=== PATIENT | male | born 1955 | race Caucasian/White ===

== ENCOUNTER 2022-03-25 13:05 | Inpatient (IN) | payer MEDICAID, OTHER ==
[~2022-03-25] VITALS: Ht 182.9 cm; Wt 72.5 kg
[2022-03-25 14:34] LABS: APPEARANCE,URINE CLEAR (CLEAR); BILIRUBIN,URINE NEGATIVE (NEGATIVE); GLUCOSE, URINE (UA) NEGATIVE (NEGATIVE); KETONES,URINE NEGATIVE (NEGATIVE); LEUKOCYTE ESTERASE ,URINE NEGATIVE (NEGATIVE); NITRATE,URINE NEGATIVE (NEGATIVE); OCCULT BLOOD,URINE NEGATIVE (NEGATIVE); PROTEIN,URINE NEGATIVE (NEGATIVE); SPECIFIC GRAVITIY, URINE 1.006 (1.003-1.030); UROBILINOGEN,URINE <=1.0 mg/dL (<=1.0)
[2022-03-25 14:39] LABS: AMPHET/METH SCREEN,URINE NEGATIVE (NEGATIVE); BARBITURATE SCREEN, URINE NEGATIVE (NEGATIVE); BENZODIAZEPINES SCREEN,URINE NEGATIVE (NEGATIVE); CANNABINOID SCREEN,URINE NEGATIVE (NEGATIVE); COCAINE SCREEN,URINE NEGATIVE (NEGATIVE); METHADONE SCREEN, URINE NEGATIVE (NEGATIVE); OPIATE SCREEN,URINE NEGATIVE (NEGATIVE)
[2022-03-25 14:40] LABS: PHENCYCLIDINE SCREEN,URINE NEGATIVE (NEGATIVE)
[2022-03-25] MEDS ORDERED: HALOPERIDOL 5 MG TABLET PO PRN (14:45)
[2022-03-25] MEDS ORDERED: LORazepam 2 MG TABLET PO PRN (14:45)
[2022-03-25] MEDS ORDERED: ZOLPIDEM TARTRATE 10 MG TABLET PO PRN (14:45)
[2022-03-25] MEDS ORDERED: LORazepam 2 MG TABLET PO ONE (15:15)
[2022-03-25] MEDS ORDERED: DiphenhydrAMINE HCL 50 MG CAPSULE PO ONE (15:15)
[2022-03-25] MEDS ORDERED: HALOPERIDOL 5 MG TABLET PO ONE (15:15)
[2022-03-25 15:25] LABS: COVID AG,FIA SOURCE NASOPHARYNGEAL
[2022-03-25 15:26] LABS: BASOPHILS % (AUTO) 1.2 % (0.0-2.0); EOSINOPHILS % (AUTO) 1.1 % (1.0-6.0); HEMATOCRIT 38.8 % (41-53); LYMPHOCYTES % (AUTO) 19.6 % (22.0-44.0); MEAN CORPUSCULAR HEMOGLOBIN 31.8 pg (26.0-34.0); MEAN CORPUSCULAR HGB CONC 33.5 G/dL (31.0-37.0); MEAN CORPUSCULAR VOLUME 95 fL (80-100); MONOCYTES # (AUTO) 0.4 K/uL (0.1-1.0); MONOCYTES % (AUTO) 8.2 % (2.0-9.0); NEUTROPHILS # (AUTO) 3.7 K/uL (1.8-7.7); NEUTROPHILS % (AUTO) 69.9 % (40.0-70.0); PLATELET COUNT (AUTO) 166 K/uL (150-450); RED BLOOD CELL COUNT(AUTO) 4.08 MIL/uL (4.50-5.90); RED CELL DISTRIBUTION WIDTH 13.7 % (11.5-14.5)
[2022-03-25 15:49] LABS: ANION GAP 6 mmol/L (8-16); CARBON DIOXIDE 29 mmol/L (22-29); CHLORIDE 105 mmol/L (98-107); CREATININE 0.99 mg/dL (0.60-1.30); GLUCOSE,RANDOM 109 mg/dL (70-110); SODIUM SERUM 140 mmol/L (136-145); UREA NITROGEN, BLOOD 18 mg/dL (7-18)
[2022-03-25 15:50] LABS: CALCIUM, TOTAL 8.6 mg/dL (8.8-10.5); GLOMERULAR FILTR. RATE CALC > 60 mL/min (>60)
[2022-03-25 15:56] LABS: ALANINE AMINOTRANSFERASE 27 U/L (12-78); ALBUMIN 3.2 g/dL (3.4-5.0); ALKALINE PHOSPHATASE 117 U/L (46-116); ASPARTATE AMINOTRANSFERASE 17 U/L (15-37); BILIRUBIN,TOTAL 0.3 mg/dL (0.1-1.0); TOTAL PROTEIN, SERUM 5.6 g/dL (6.4-8.2)
[2022-03-25 17:50] VITALS: BP 157/69
[2022-03-26 08:00] VITALS: BP 117/62
[2022-03-26] MEDS ORDERED: ONDANSETRON HCL 4 MG TABLET PO PRN (09:15)
[2022-03-26] MEDS ORDERED: MAGNESIUM HYDROXIDE SUSPENSION 30 ML UDCUP PO PRN (09:15)
[2022-03-26] MEDS ORDERED: DOCUSATE SODIUM 100 MG CAPSULE PO PRN (09:15)
[2022-03-26] MEDS ORDERED: ACETAMINOPHEN 325 MG TABLET PO PRN (09:15)
[2022-03-26] MEDS ORDERED: MAG HYDROX/AL HYDROX/SIMETH ES 30 ML SUSPENSION UDCUP PO PRN (09:15)
[2022-03-26] MEDS ORDERED: IBUPROFEN 400 MG TABLET PO PRN (09:15)
[2022-03-26] MEDS ORDERED: ALBUTEROL SULFATE HFA 90 MCG/PUFF 8 GM INHALER IH PRN (09:15)
[2022-03-26] MEDS ORDERED: GuaiFENesin/D-METHORPHAN [SUGAR-FREE] 200-20MG/10 ML SYRUP UDCUP PO PRN (09:15)
[2022-03-26] MEDS ORDERED: LOPERAMIDE HCL 2 MG CAPSULE PO PRN (09:15)
[2022-03-26] MEDS ORDERED: CloNIDine HCL 0.1 MG TABLET PO PRN (09:15)
[2022-03-26] MEDS ORDERED: NICOTINE 14 MG/24 HOUR PATCH TD PRN (09:15)
[2022-03-26] MEDS ORDERED: PETROLATUM,WHITE 28 GM JELLY TP PRN (09:15)
[2022-03-26 16:37] VITALS: BP 114/55
[2022-03-26] MEDS ORDERED: BUPR-317 PO (16:57)
[2022-03-26] MEDS ORDERED: CLON-595 PO (16:57)
[2022-03-26] MEDS ORDERED: CARI3CAP PO (16:57)
[2022-03-26] MEDS ORDERED: CHOL10002 PO (17:15)
[2022-03-26] MEDS ORDERED: AMLO5TAB66 PO (17:15)
[2022-03-26] MEDS ORDERED: ATOR40TA71 PO (17:15)
[2022-03-26] MEDS ORDERED: OXCA300T28 PO (17:15)
[2022-03-26] MEDS ORDERED: LISI40TA9 PO (17:15)
[2022-03-26] MEDS ORDERED: OXYB5TAB20 PO (17:15)
[2022-03-26] MEDS ORDERED: LEVE250T4 PO (17:15)
[2022-03-26] MEDS: OXYBUTYNIN CHLORIDE 5 MG TABLET PO SCH (20:35)
[2022-03-26] MEDS: ClonazePAM 1 MG TABLET PO SCH (20:36)
[2022-03-26] MEDS: RisperiDONE 3 MG TABLET PO SCH (20:36)
[2022-03-27] MEDS: ATORVASTATIN CALCIUM 40 MG TABLET PO SCH (08:43)
[2022-03-27] MEDS: OXcarbazepine 300 MG TABLET PO SCH ×2 (08:43→16:46)
[2022-03-27] MEDS: BuPROPion HCL XL 150 MG ER TABLET PO SCH (08:45)
[2022-03-27] MEDS: ClonazePAM 1 MG TABLET PO SCH ×2 (08:45→20:43)
[2022-03-27] MEDS: LISINOPRIL 20 MG TABLET PO SCH (08:45)
[2022-03-27] MEDS: AmLODIPine BESYLATE 5 MG TABLET PO SCH (08:46)
[2022-03-27] MEDS: CHOLECALCIFEROL (VIT D3) 1,000 UNITS [25 MCG] TABLET PO SCH (08:46)
[2022-03-27] MEDS: LevETIRAcetam 250 MG TABLET PO SCH ×2 (08:47→16:44)
[2022-03-27 09:00] VITALS: BP 153/74
[2022-03-27 16:09] VITALS: BP 128/73
[2022-03-27] MEDS: MUPIROCIN CALCIUM 2% 22 GM OINTMENT NASAL SCH (16:48)
[2022-03-27] MEDS: RisperiDONE 3 MG TABLET PO SCH (20:43)
[2022-03-27] MEDS: OXYBUTYNIN CHLORIDE 5 MG TABLET PO SCH (20:43)
[2022-03-28 08:00] VITALS: BP 142/80
[2022-03-28] MEDS: MUPIROCIN CALCIUM 2% 22 GM OINTMENT NASAL SCH ×2 (08:24→16:58)
[2022-03-28] MEDS: BuPROPion HCL XL 150 MG ER TABLET PO SCH (08:25)
[2022-03-28] MEDS: ATORVASTATIN CALCIUM 40 MG TABLET PO SCH (08:25)
[2022-03-28] MEDS: LISINOPRIL 20 MG TABLET PO SCH (08:26)
[2022-03-28] MEDS: OXcarbazepine 300 MG TABLET PO SCH ×2 (08:26→16:06)
[2022-03-28] MEDS: CHOLECALCIFEROL (VIT D3) 1,000 UNITS [25 MCG] TABLET PO SCH (08:27)
[2022-03-28] MEDS: AmLODIPine BESYLATE 5 MG TABLET PO SCH (08:27)
[2022-03-28] MEDS: ClonazePAM 1 MG TABLET PO SCH ×2 (08:27→20:48)
[2022-03-28] MEDS: LevETIRAcetam 250 MG TABLET PO SCH ×2 (08:28→16:06)
[2022-03-28 16:00] VITALS: BP 106/66
[2022-03-28] MEDS: RisperiDONE 3 MG TABLET PO SCH (20:48)
[2022-03-28] MEDS: OXYBUTYNIN CHLORIDE 5 MG TABLET PO SCH (20:48)
[2022-03-29 09:09] VITALS: BP 120/60
[2022-03-29] MEDS: LevETIRAcetam 250 MG TABLET PO SCH ×2 (09:46→16:46)
[2022-03-29] MEDS: MUPIROCIN CALCIUM 2% 22 GM OINTMENT NASAL SCH ×2 (09:47→16:46)
[2022-03-29] MEDS: AmLODIPine BESYLATE 5 MG TABLET PO SCH (09:48)
[2022-03-29] MEDS: LISINOPRIL 20 MG TABLET PO SCH (09:48)
[2022-03-29] MEDS: CHOLECALCIFEROL (VIT D3) 1,000 UNITS [25 MCG] TABLET PO SCH (09:48)
[2022-03-29] MEDS: BuPROPion HCL XL 150 MG ER TABLET PO SCH (09:59)
[2022-03-29] MEDS: ClonazePAM 1 MG TABLET PO SCH ×2 (09:59→20:36)
[2022-03-29] MEDS: ATORVASTATIN CALCIUM 40 MG TABLET PO SCH (09:59)
[2022-03-29] MEDS: OXcarbazepine 300 MG TABLET PO SCH ×2 (10:04→16:46)
[2022-03-29 16:06] VITALS: BP 104/53
[2022-03-29] MEDS: OXYBUTYNIN CHLORIDE 5 MG TABLET PO SCH (20:36)
[2022-03-29] MEDS: RisperiDONE 3 MG TABLET PO SCH (20:37)
[2022-03-30 08:24] VITALS: BP 103/57
[2022-03-30] MEDS: LevETIRAcetam 250 MG TABLET PO SCH ×2 (09:38→17:15)
[2022-03-30] MEDS: MUPIROCIN CALCIUM 2% 22 GM OINTMENT NASAL SCH ×2 (09:38→17:15)
[2022-03-30] MEDS: LISINOPRIL 20 MG TABLET PO SCH (09:40)
[2022-03-30] MEDS: AmLODIPine BESYLATE 5 MG TABLET PO SCH (09:40)
[2022-03-30] MEDS: CHOLECALCIFEROL (VIT D3) 1,000 UNITS [25 MCG] TABLET PO SCH (09:40)
[2022-03-30] MEDS: BuPROPion HCL XL 150 MG ER TABLET PO SCH (09:48)
[2022-03-30] MEDS: OXcarbazepine 300 MG TABLET PO SCH ×2 (09:48→17:15)
[2022-03-30] MEDS: ATORVASTATIN CALCIUM 40 MG TABLET PO SCH (09:48)
[2022-03-30] MEDS: ClonazePAM 1 MG TABLET PO SCH ×2 (09:48→20:48)
[2022-03-30 17:10] VITALS: BP 114/62
[2022-03-30] MEDS: OXYBUTYNIN CHLORIDE 5 MG TABLET PO SCH (20:47)
[2022-03-30] MEDS: RisperiDONE 3 MG TABLET PO SCH (20:48)
[2022-03-31 07:05] LABS: COVID AG,FIA SOURCE NASAL SWAB
[2022-03-31] MEDS: ATORVASTATIN CALCIUM 40 MG TABLET PO SCH (08:34)
[2022-03-31] MEDS: ClonazePAM 1 MG TABLET PO SCH ×2 (08:34→20:28)
[2022-03-31] MEDS: OXcarbazepine 300 MG TABLET PO SCH ×2 (08:34→16:10)
[2022-03-31] MEDS: AmLODIPine BESYLATE 5 MG TABLET PO SCH (08:35)
[2022-03-31] MEDS: MUPIROCIN CALCIUM 2% 22 GM OINTMENT NASAL SCH ×2 (08:36→16:10)
[2022-03-31] MEDS: LevETIRAcetam 250 MG TABLET PO SCH ×2 (08:36→16:10)
[2022-03-31] MEDS: BuPROPion HCL XL 150 MG ER TABLET PO SCH (08:36)
[2022-03-31] MEDS: LISINOPRIL 20 MG TABLET PO SCH (08:37)
[2022-03-31] MEDS: CHOLECALCIFEROL (VIT D3) 1,000 UNITS [25 MCG] TABLET PO SCH (08:37)
[2022-03-31 10:44] VITALS: BP 130/71
[2022-03-31 16:23] VITALS: BP 111/43
[2022-03-31] MEDS: RisperiDONE 3 MG TABLET PO SCH (20:28)
[2022-03-31] MEDS: OXYBUTYNIN CHLORIDE 5 MG TABLET PO SCH (20:28)
[2022-04-01] MEDS: LISINOPRIL 20 MG TABLET PO SCH (09:25)
[2022-04-01] MEDS: OXcarbazepine 300 MG TABLET PO SCH ×2 (09:25→16:45)
[2022-04-01] MEDS: ATORVASTATIN CALCIUM 40 MG TABLET PO SCH (09:35)
[2022-04-01] MEDS: CHOLECALCIFEROL (VIT D3) 1,000 UNITS [25 MCG] TABLET PO SCH (09:35)
[2022-04-01] MEDS: BuPROPion HCL XL 150 MG ER TABLET PO SCH (09:35)
[2022-04-01] MEDS: LevETIRAcetam 250 MG TABLET PO SCH ×2 (09:36→16:45)
[2022-04-01] MEDS: ClonazePAM 1 MG TABLET PO SCH ×2 (09:36→20:48)
[2022-04-01] MEDS: MUPIROCIN CALCIUM 2% 22 GM OINTMENT NASAL SCH ×2 (09:36→16:45)
[2022-04-01] MEDS: AmLODIPine BESYLATE 5 MG TABLET PO SCH (09:39)
[2022-04-01 09:51] VITALS: BP 128/69
[2022-04-01 16:00] VITALS: BP 116/56
[2022-04-01] MEDS: OXYBUTYNIN CHLORIDE 5 MG TABLET PO SCH (20:47)
[2022-04-01] MEDS: RisperiDONE 3 MG TABLET PO SCH (20:48)
[2022-04-02] MEDS: LevETIRAcetam 250 MG TABLET PO SCH ×2 (08:35→16:44)
[2022-04-02] MEDS: OXcarbazepine 300 MG TABLET PO SCH ×2 (08:35→16:44)
[2022-04-02] MEDS: LISINOPRIL 20 MG TABLET PO SCH (08:35)
[2022-04-02] MEDS: CHOLECALCIFEROL (VIT D3) 1,000 UNITS [25 MCG] TABLET PO SCH (08:35)
[2022-04-02] MEDS: AmLODIPine BESYLATE 5 MG TABLET PO SCH (08:35)
[2022-04-02] MEDS: ATORVASTATIN CALCIUM 40 MG TABLET PO SCH (08:35)
[2022-04-02] MEDS: ClonazePAM 1 MG TABLET PO SCH ×2 (08:36→20:21)
[2022-04-02] MEDS: BuPROPion HCL XL 150 MG ER TABLET PO SCH (08:36)
[2022-04-02 09:20] VITALS: BP 165/87
[2022-04-02 16:00] VITALS: BP 118/55
[2022-04-02] MEDS: OXYBUTYNIN CHLORIDE 5 MG TABLET PO SCH (20:21)
[2022-04-02] MEDS: RisperiDONE 3 MG TABLET PO SCH (20:22)
[2022-04-03 09:00] VITALS: BP 120/62
[2022-04-03] MEDS: OXcarbazepine 300 MG TABLET PO SCH ×2 (09:43→16:06)
[2022-04-03] MEDS: LevETIRAcetam 250 MG TABLET PO SCH ×2 (09:43→16:06)
[2022-04-03] MEDS: BuPROPion HCL XL 150 MG ER TABLET PO SCH (09:44)
[2022-04-03] MEDS: ClonazePAM 1 MG TABLET PO SCH ×2 (09:44→21:13)
[2022-04-03] MEDS: AmLODIPine BESYLATE 5 MG TABLET PO SCH (09:44)
[2022-04-03] MEDS: ATORVASTATIN CALCIUM 40 MG TABLET PO SCH (09:44)
[2022-04-03] MEDS: CHOLECALCIFEROL (VIT D3) 1,000 UNITS [25 MCG] TABLET PO SCH (09:44)
[2022-04-03] MEDS: LISINOPRIL 20 MG TABLET PO SCH (09:47)
[2022-04-03 17:04] VITALS: BP 113/62
[2022-04-03] MEDS: OXYBUTYNIN CHLORIDE 5 MG TABLET PO SCH (21:13)
[2022-04-03] MEDS: RisperiDONE 3 MG TABLET PO SCH (21:13)
[2022-04-04 09:30] VITALS: BP 131/73
[2022-04-04] MEDS: ATORVASTATIN CALCIUM 40 MG TABLET PO SCH (09:31)
[2022-04-04] MEDS: OXcarbazepine 300 MG TABLET PO SCH ×2 (09:31→16:56)
[2022-04-04] MEDS: ClonazePAM 1 MG TABLET PO SCH ×2 (09:31→20:48)
[2022-04-04] MEDS: BuPROPion HCL XL 150 MG ER TABLET PO SCH (09:31)
[2022-04-04] MEDS: LevETIRAcetam 250 MG TABLET PO SCH ×2 (09:31→16:56)
[2022-04-04] MEDS: LISINOPRIL 20 MG TABLET PO SCH (09:31)
[2022-04-04] MEDS: CHOLECALCIFEROL (VIT D3) 1,000 UNITS [25 MCG] TABLET PO SCH (09:31)
[2022-04-04] MEDS: AmLODIPine BESYLATE 5 MG TABLET PO SCH (09:32)
[2022-04-04] MEDS: OXYBUTYNIN CHLORIDE 5 MG TABLET PO SCH (20:48)
[2022-04-04] MEDS: RisperiDONE 3 MG TABLET PO SCH (20:48)
[2022-04-04 21:24] VITALS: BP 129/80
[2022-04-05] MEDS: OXcarbazepine 300 MG TABLET PO SCH (08:14)
[2022-04-05] MEDS: ClonazePAM 1 MG TABLET PO SCH (08:17)
[2022-04-05] MEDS: CHOLECALCIFEROL (VIT D3) 1,000 UNITS [25 MCG] TABLET PO SCH (08:18)
[2022-04-05] MEDS: ATORVASTATIN CALCIUM 40 MG TABLET PO SCH (08:18)
[2022-04-05] MEDS: LISINOPRIL 20 MG TABLET PO SCH (08:18)
[2022-04-05] MEDS: AmLODIPine BESYLATE 5 MG TABLET PO SCH (08:18)
[2022-04-05] MEDS: BuPROPion HCL XL 150 MG ER TABLET PO SCH (08:18)
[2022-04-05] MEDS: LevETIRAcetam 250 MG TABLET PO SCH (08:18)
[2022-04-05 08:57] VITALS: BP 130/77
[2022-04-05] MEDS ORDERED: CHOL25TA4 PO (16:04)
[2022-04-05] MEDS ORDERED: OXYB5TAB20 PO (16:04)
[2022-04-05] MEDS ORDERED: ATOR40TA71 PO (16:04)
[2022-04-05] MEDS ORDERED: AMLO-257 PO (16:04)
[2022-04-05] MEDS ORDERED: LEVE250T PO (16:04)
[2022-04-05] MEDS ORDERED: LISI-894 PO (16:04)
[2022-04-05] MEDS ORDERED: BUPR-49 PO (21:40)
[2022-04-05] MEDS ORDERED: RISP3TAB63 PO (21:40)
[2022-04-05] MEDS ORDERED: CLON-595 PO ×2 (21:40)
[2022-04-07] MEDS ORDERED: CLON-595 PO ×2 (09:24→09:55)
[2022-04-07] MEDS ORDERED: CLON-598 PO ×2 (09:24→09:55)
== END 2022-04-05 15:30 | disposition home or self-care (01) | DRG 750 ==
LOC: EMS 13:10 → 3EI 16:56
PROVIDERS: ADMIT Psychiatry & Neurology Psychiatry; ATTEND Psychiatry & Neurology Psychiatry
DX: F20.0 Paranoid schizophrenia (principal); G40.909 Epilepsy, unspecified, not intractable, without status epilepticus; D64.9 Anemia, unspecified; E78.5 Hyperlipidemia, unspecified; F17.200 Nicotine dependence, unspecified, uncomplicated; M19.90 Unspecified osteoarthritis, unspecified site; R32 Unspecified urinary incontinence; I10 Essential (primary) hypertension; F17.210 Nicotine dependence, cigarettes, uncomplicated; Z79.899 Other long term (current) drug therapy; Z20.822 Contact with and (suspected) exposure to COVID-19
CPT/HCPCS: 80053; 81003; 85025; 87081; 99285; G0480

== ENCOUNTER 2022-06-25 17:08 | Inpatient (IN) | payer MEDICAID ==
[~2022-06-25] VITALS: Ht 167.6 cm; Wt 73.5 kg
[~2022-06-25 17:08] MED LIST: AMLO-257 PO; ATOR40TA71 PO; BUPR-49 PO; CHOL25TA4 PO; CLON-595 PO; CLON-598 PO; LEVE250T PO; LISI-894 PO; OXYB5TAB20 PO; RISP3TAB63 PO
[2022-06-25 20:48] LABS: BASOPHILS % (AUTO) 0.5 % (0.0-2.0); EOSINOPHILS % (AUTO) 1.3 % (1.0-6.0); HEMATOCRIT 42.9 % (41-53); LYMPHOCYTES % (AUTO) 30.9 % (22.0-44.0); MEAN CORPUSCULAR HEMOGLOBIN 30.9 pg (26.0-34.0); MEAN CORPUSCULAR HGB CONC 32.5 G/dL (31.0-37.0); MEAN CORPUSCULAR VOLUME 95 fL (80-100); MONOCYTES # (AUTO) 0.5 K/uL (0.1-1.0); MONOCYTES % (AUTO) 7.1 % (2.0-9.0); NEUTROPHILS % (AUTO) 60.2 % (40.0-70.0); PLATELET COUNT (AUTO) 179 K/uL (150-450); RED BLOOD CELL COUNT(AUTO) 4.52 MIL/uL (4.50-5.90); RED CELL DISTRIBUTION WIDTH 14.1 % (11.5-14.5)
[2022-06-25 20:54] LABS: COVID AG,FIA SOURCE NASAL SWAB
[2022-06-25 21:02] LABS: ANION GAP 9 mmol/L (8-16); CALCIUM, TOTAL 8.6 mg/dL (8.8-10.5); CARBON DIOXIDE 27 mmol/L (22-29); CHLORIDE 103 mmol/L (98-107); GLUCOSE,RANDOM 103 mg/dL (70-110); POTASSIUM 4.1 mmol/L (3.5-5.1); SODIUM SERUM 139 mmol/L (136-145); UREA NITROGEN, BLOOD 17 mg/dL (7-18)
[2022-06-25 21:03] LABS: GLOMERULAR FILTR. RATE CALC > 60 mL/min (>60)
[2022-06-25 21:09] LABS: ALANINE AMINOTRANSFERASE 32 U/L (12-78); ALBUMIN 3.6 g/dL (3.4-5.0); ALKALINE PHOSPHATASE 105 U/L (46-116); ASPARTATE AMINOTRANSFERASE 22 U/L (15-37); BILIRUBIN,TOTAL 0.3 mg/dL (0.1-1.0); TOTAL PROTEIN, SERUM 6.8 g/dL (6.4-8.2)
[2022-06-25] MEDS ORDERED: LORazepam 2 MG TABLET PO ONE (21:15)
[2022-06-25] MEDS ORDERED: HALOPERIDOL 5 MG TABLET PO ONE (21:15)
[2022-06-25] MEDS ORDERED: DiphenhydrAMINE HCL 25 MG CAPSULE PO ONE (21:15)
[2022-06-25] MEDS ORDERED: DiphenhydrAMINE HCL 50 MG CAPSULE PO ONE (21:30)
[2022-06-25 21:59] LABS: AMPHET/METH SCREEN,URINE NEGATIVE (NEGATIVE); BARBITURATE SCREEN, URINE NEGATIVE (NEGATIVE); BENZODIAZEPINES SCREEN,URINE NEGATIVE (NEGATIVE); CANNABINOID SCREEN,URINE NEGATIVE (NEGATIVE); COCAINE SCREEN,URINE NEGATIVE (NEGATIVE); METHADONE SCREEN, URINE NEGATIVE (NEGATIVE); OPIATE SCREEN,URINE NEGATIVE (NEGATIVE)
[2022-06-25 22:00] LABS: PHENCYCLIDINE SCREEN,URINE NEGATIVE (NEGATIVE)
[2022-06-25 22:15] LABS: APPEARANCE,URINE CLEAR (CLEAR); BILIRUBIN,URINE NEGATIVE (NEGATIVE); GLUCOSE, URINE (UA) NEGATIVE (NEGATIVE); KETONES,URINE NEGATIVE (NEGATIVE); LEUKOCYTE ESTERASE ,URINE NEGATIVE (NEGATIVE); NITRATE,URINE NEGATIVE (NEGATIVE); OCCULT BLOOD,URINE NEGATIVE (NEGATIVE); PH,URINE 6.5 (5.0-8.0); PROTEIN,URINE NEGATIVE (NEGATIVE); SPECIFIC GRAVITIY, URINE 1.013 (1.003-1.030); UROBILINOGEN,URINE <=1.0 mg/dL (<=1.0)
[2022-06-25] MEDS ORDERED: HALOPERIDOL 5 MG TABLET PO PRN (22:15)
[2022-06-25] MEDS ORDERED: LORazepam 2 MG TABLET PO PRN (22:15)
[2022-06-26 03:34] VITALS: BP 103/69
[2022-06-26 08:22] VITALS: BP 130/90
[2022-06-26] MEDS ORDERED: MAG HYDROX/AL HYDROX/SIMETH ES 30 ML SUSPENSION UDCUP PO PRN (09:15)
[2022-06-26] MEDS ORDERED: ALBUTEROL SULFATE HFA 90 MCG/PUFF 8 GM INHALER IH PRN (09:15)
[2022-06-26] MEDS ORDERED: ONDANSETRON HCL 4 MG TABLET PO PRN (09:15)
[2022-06-26] MEDS ORDERED: NICOTINE 14 MG/24 HOUR PATCH TD PRN (09:15)
[2022-06-26] MEDS ORDERED: DOCUSATE SODIUM 100 MG CAPSULE PO PRN (09:15)
[2022-06-26] MEDS ORDERED: GuaiFENesin/D-METHORPHAN [SUGAR-FREE] 200-20MG/10 ML SYRUP UDCUP PO PRN (09:15)
[2022-06-26] MEDS ORDERED: PETROLATUM,WHITE 28 GM JELLY TP PRN (09:15)
[2022-06-26] MEDS ORDERED: ACETAMINOPHEN 325 MG TABLET PO PRN (09:15)
[2022-06-26] MEDS ORDERED: CloNIDine HCL 0.1 MG TABLET PO PRN (09:15)
[2022-06-26] MEDS ORDERED: IBUPROFEN 400 MG TABLET PO PRN (09:15)
[2022-06-26] MEDS ORDERED: MAGNESIUM HYDROXIDE SUSPENSION 30 ML UDCUP PO PRN (09:15)
[2022-06-26] MEDS ORDERED: LOPERAMIDE HCL 2 MG CAPSULE PO PRN (09:15)
[2022-06-26] MEDS ORDERED: RISP3TAB35 PO (12:31)
[2022-06-26] MEDS: ClonazePAM 1 MG TABLET PO SCH (12:47)
[2022-06-26] MEDS: BuPROPion HCL XL 150 MG ER TABLET PO SCH (12:47)
[2022-06-26] MEDS: RisperiDONE 3 MG TABLET PO SCH ×2 (12:47→20:20)
[2022-06-26 16:13] VITALS: BP 122/68
[2022-06-26] MEDS: LevETIRAcetam 250 MG TABLET PO SCH (16:50)
[2022-06-26] MEDS: OXYBUTYNIN CHLORIDE 5 MG TABLET PO SCH (20:20)
[2022-06-26 20:49] VITALS: BP 124/60
[2022-06-27] MEDS: BuPROPion HCL XL 150 MG ER TABLET PO SCH (09:16)
[2022-06-27] MEDS: RisperiDONE 3 MG TABLET PO SCH ×2 (09:16→20:33)
[2022-06-27] MEDS: CHOLECALCIFEROL (VIT D3) 1,000 UNITS [25 MCG] TABLET PO SCH (09:17)
[2022-06-27] MEDS: ClonazePAM 1 MG TABLET PO SCH (09:17)
[2022-06-27] MEDS: AmLODIPine BESYLATE 5 MG TABLET PO SCH (09:17)
[2022-06-27] MEDS: ATORVASTATIN CALCIUM 40 MG TABLET PO SCH (09:18)
[2022-06-27] MEDS: LevETIRAcetam 250 MG TABLET PO SCH ×2 (09:18→16:47)
[2022-06-27 09:22] VITALS: BP 119/63
[2022-06-27] MEDS: OXYBUTYNIN CHLORIDE 5 MG TABLET PO SCH (20:33)
[2022-06-27 20:41] VITALS: BP 132/90
[2022-06-28] MEDS: ClonazePAM 1 MG TABLET PO SCH (08:53)
[2022-06-28] MEDS: AmLODIPine BESYLATE 5 MG TABLET PO SCH (08:53)
[2022-06-28] MEDS: RisperiDONE 3 MG TABLET PO SCH ×2 (08:53→20:31)
[2022-06-28] MEDS: BuPROPion HCL XL 150 MG ER TABLET PO SCH (08:53)
[2022-06-28] MEDS: CHOLECALCIFEROL (VIT D3) 1,000 UNITS [25 MCG] TABLET PO SCH (08:53)
[2022-06-28] MEDS: ATORVASTATIN CALCIUM 40 MG TABLET PO SCH (08:53)
[2022-06-28] MEDS: LevETIRAcetam 250 MG TABLET PO SCH ×2 (09:01→16:33)
[2022-06-28 09:08] VITALS: BP 129/67
[2022-06-28 20:26] VITALS: BP 126/65
[2022-06-28] MEDS: OXYBUTYNIN CHLORIDE 5 MG TABLET PO SCH (20:31)
[2022-06-29 08:39] VITALS: BP 124/74
[2022-06-29] MEDS: ClonazePAM 1 MG TABLET PO SCH (08:42)
[2022-06-29] MEDS: RisperiDONE 3 MG TABLET PO SCH ×2 (08:42→20:12)
[2022-06-29] MEDS: CHOLECALCIFEROL (VIT D3) 1,000 UNITS [25 MCG] TABLET PO SCH (08:42)
[2022-06-29] MEDS: LevETIRAcetam 250 MG TABLET PO SCH ×2 (08:43→16:37)
[2022-06-29] MEDS: ATORVASTATIN CALCIUM 40 MG TABLET PO SCH (08:43)
[2022-06-29] MEDS: BuPROPion HCL XL 150 MG ER TABLET PO SCH (08:43)
[2022-06-29] MEDS: AmLODIPine BESYLATE 5 MG TABLET PO SCH (08:43)
[2022-06-29] MEDS: OXYBUTYNIN CHLORIDE 5 MG TABLET PO SCH (20:12)
[2022-06-29 20:13] VITALS: BP 122/74
[2022-06-30 08:36] VITALS: BP 107/66
[2022-06-30] MEDS: CHOLECALCIFEROL (VIT D3) 1,000 UNITS [25 MCG] TABLET PO SCH (08:42)
[2022-06-30] MEDS: AmLODIPine BESYLATE 5 MG TABLET PO SCH (08:42)
[2022-06-30] MEDS: LevETIRAcetam 250 MG TABLET PO SCH ×2 (08:42→16:27)
[2022-06-30] MEDS: RisperiDONE 3 MG TABLET PO SCH ×2 (08:42→20:15)
[2022-06-30] MEDS: BuPROPion HCL XL 150 MG ER TABLET PO SCH (08:42)
[2022-06-30] MEDS: ClonazePAM 1 MG TABLET PO SCH (08:43)
[2022-06-30] MEDS: ATORVASTATIN CALCIUM 40 MG TABLET PO SCH (08:43)
[2022-06-30] MEDS: OXYBUTYNIN CHLORIDE 5 MG TABLET PO SCH (20:14)
[2022-06-30 20:17] VITALS: BP 144/80
[2022-07-01] MEDS: RisperiDONE 3 MG TABLET PO SCH ×3 (08:21→20:01)
[2022-07-01] MEDS: BuPROPion HCL XL 150 MG ER TABLET PO SCH (08:21)
[2022-07-01] MEDS: ClonazePAM 1 MG TABLET PO SCH (08:21)
[2022-07-01] MEDS: CHOLECALCIFEROL (VIT D3) 1,000 UNITS [25 MCG] TABLET PO SCH (08:21)
[2022-07-01] MEDS: AmLODIPine BESYLATE 5 MG TABLET PO SCH (08:22)
[2022-07-01] MEDS: ATORVASTATIN CALCIUM 40 MG TABLET PO SCH (08:22)
[2022-07-01] MEDS: LevETIRAcetam 250 MG TABLET PO SCH ×2 (08:22→16:16)
[2022-07-01 08:33] VITALS: BP 135/72
[2022-07-01] MEDS: OXYBUTYNIN CHLORIDE 5 MG TABLET PO SCH (20:00)
[2022-07-01 21:43] VITALS: BP 121/65
[2022-07-02] MEDS: ZOLPIDEM TARTRATE 10 MG TABLET PO PRN (00:09)
[2022-07-02 06:47] LABS: GLUCOMETER DEV NAME(LOC) POC.BV
[2022-07-02 08:22] VITALS: BP 115/66
[2022-07-02] MEDS: CHOLECALCIFEROL (VIT D3) 1,000 UNITS [25 MCG] TABLET PO SCH (08:38)
[2022-07-02] MEDS: LevETIRAcetam 250 MG TABLET PO SCH ×2 (08:38→17:17)
[2022-07-02] MEDS: AmLODIPine BESYLATE 5 MG TABLET PO SCH (08:38)
[2022-07-02] MEDS: ATORVASTATIN CALCIUM 40 MG TABLET PO SCH (08:38)
[2022-07-02] MEDS: BuPROPion HCL XL 150 MG ER TABLET PO SCH (08:38)
[2022-07-02] MEDS: RisperiDONE 3 MG TABLET PO SCH ×2 (08:38→21:16)
[2022-07-02] MEDS: ClonazePAM 1 MG TABLET PO SCH (08:38)
[2022-07-02 20:06] VITALS: BP 117/70
[2022-07-02] MEDS: OXYBUTYNIN CHLORIDE 5 MG TABLET PO SCH (21:16)
[2022-07-03 08:39] VITALS: BP 139/60
[2022-07-03] MEDS: ClonazePAM 1 MG TABLET PO SCH (08:57)
[2022-07-03] MEDS: LevETIRAcetam 250 MG TABLET PO SCH ×2 (08:57→16:43)
[2022-07-03] MEDS: AmLODIPine BESYLATE 5 MG TABLET PO SCH (08:57)
[2022-07-03] MEDS: CHOLECALCIFEROL (VIT D3) 1,000 UNITS [25 MCG] TABLET PO SCH (08:57)
[2022-07-03] MEDS: BuPROPion HCL XL 150 MG ER TABLET PO SCH (08:57)
[2022-07-03] MEDS: ATORVASTATIN CALCIUM 40 MG TABLET PO SCH (08:57)
[2022-07-03] MEDS: RisperiDONE 3 MG TABLET PO SCH ×2 (09:00→20:41)
[2022-07-03] MEDS: ZOLPIDEM TARTRATE 10 MG TABLET PO PRN (20:41)
[2022-07-03] MEDS: OXYBUTYNIN CHLORIDE 5 MG TABLET PO SCH (20:41)
[2022-07-03 21:38] VITALS: BP 116/65
[2022-07-04 08:45] VITALS: BP 124/74
[2022-07-04] MEDS: RisperiDONE 3 MG TABLET PO SCH ×2 (09:00→20:21)
[2022-07-04] MEDS: BuPROPion HCL XL 150 MG ER TABLET PO SCH (09:03)
[2022-07-04] MEDS: AmLODIPine BESYLATE 5 MG TABLET PO SCH (09:03)
[2022-07-04] MEDS: LevETIRAcetam 250 MG TABLET PO SCH ×2 (09:03→16:38)
[2022-07-04] MEDS: ATORVASTATIN CALCIUM 40 MG TABLET PO SCH (09:03)
[2022-07-04] MEDS: CHOLECALCIFEROL (VIT D3) 1,000 UNITS [25 MCG] TABLET PO SCH (09:04)
[2022-07-04] MEDS: ClonazePAM 1 MG TABLET PO SCH (09:04)
[2022-07-04] MEDS: OXYBUTYNIN CHLORIDE 5 MG TABLET PO SCH (20:16)
[2022-07-04 20:35] VITALS: BP 112/70
[2022-07-05 08:25] VITALS: BP 117/62
[2022-07-05] MEDS: AmLODIPine BESYLATE 5 MG TABLET PO SCH (08:30)
[2022-07-05] MEDS: ClonazePAM 1 MG TABLET PO SCH (08:30)
[2022-07-05] MEDS: RisperiDONE 3 MG TABLET PO SCH ×2 (08:30→20:31)
[2022-07-05] MEDS: ATORVASTATIN CALCIUM 40 MG TABLET PO SCH (08:30)
[2022-07-05] MEDS: BuPROPion HCL XL 150 MG ER TABLET PO SCH (08:30)
[2022-07-05] MEDS: LevETIRAcetam 250 MG TABLET PO SCH ×2 (08:31→16:16)
[2022-07-05] MEDS: CHOLECALCIFEROL (VIT D3) 1,000 UNITS [25 MCG] TABLET PO SCH (08:31)
[2022-07-05] MEDS ORDERED: PALIPERIDONE PALMITATE 234 MG/1.5 ML SYRINGE IM ONE (11:15)
[2022-07-05] MEDS: OXYBUTYNIN CHLORIDE 5 MG TABLET PO SCH (20:27)
[2022-07-05 20:55] VITALS: BP 104/65
[2022-07-06 08:30] VITALS: BP 124/74
[2022-07-06] MEDS: LevETIRAcetam 250 MG TABLET PO SCH ×2 (09:08→16:11)
[2022-07-06] MEDS: CHOLECALCIFEROL (VIT D3) 1,000 UNITS [25 MCG] TABLET PO SCH (09:09)
[2022-07-06] MEDS: BuPROPion HCL XL 150 MG ER TABLET PO SCH (09:09)
[2022-07-06] MEDS: ATORVASTATIN CALCIUM 40 MG TABLET PO SCH (09:09)
[2022-07-06] MEDS: ClonazePAM 1 MG TABLET PO SCH (09:09)
[2022-07-06] MEDS: AmLODIPine BESYLATE 5 MG TABLET PO SCH (09:09)
[2022-07-06] MEDS: RisperiDONE 3 MG TABLET PO SCH ×3 (09:09→20:40)
[2022-07-06] MEDS: OXYBUTYNIN CHLORIDE 5 MG TABLET PO SCH (20:30)
[2022-07-06 21:11] VITALS: BP 126/72
[2022-07-07 08:35] VITALS: BP 130/76
[2022-07-07] MEDS: RisperiDONE 3 MG TABLET PO SCH ×2 (09:00→20:31)
[2022-07-07] MEDS: LevETIRAcetam 250 MG TABLET PO SCH ×2 (10:18→17:24)
[2022-07-07] MEDS: ATORVASTATIN CALCIUM 40 MG TABLET PO SCH (10:18)
[2022-07-07] MEDS: ClonazePAM 1 MG TABLET PO SCH (10:18)
[2022-07-07] MEDS: AmLODIPine BESYLATE 5 MG TABLET PO SCH (10:18)
[2022-07-07] MEDS: BuPROPion HCL XL 150 MG ER TABLET PO SCH (10:19)
[2022-07-07] MEDS: CHOLECALCIFEROL (VIT D3) 1,000 UNITS [25 MCG] TABLET PO SCH (10:19)
[2022-07-07 20:27] VITALS: BP 126/78
[2022-07-07] MEDS: OXYBUTYNIN CHLORIDE 5 MG TABLET PO SCH (20:27)
[2022-07-08 08:42] VITALS: BP 140/69
[2022-07-08] MEDS: BuPROPion HCL XL 150 MG ER TABLET PO SCH (08:51)
[2022-07-08] MEDS: ClonazePAM 1 MG TABLET PO SCH (08:51)
[2022-07-08] MEDS: ATORVASTATIN CALCIUM 40 MG TABLET PO SCH (08:51)
[2022-07-08] MEDS: AmLODIPine BESYLATE 5 MG TABLET PO SCH (08:51)
[2022-07-08] MEDS: LevETIRAcetam 250 MG TABLET PO SCH ×2 (08:51→17:11)
[2022-07-08] MEDS: CHOLECALCIFEROL (VIT D3) 1,000 UNITS [25 MCG] TABLET PO SCH (08:52)
[2022-07-08] MEDS: RisperiDONE 3 MG TABLET PO SCH (08:57)
[2022-07-08 20:25] VITALS: BP 126/73
[2022-07-08] MEDS: RisperiDONE CONC 3 MG/3 ML SOLUTION ORAL.SYG PO SCH (20:28)
[2022-07-08] MEDS: OXYBUTYNIN CHLORIDE 5 MG TABLET PO SCH (20:29)
[2022-07-09 08:41] LABS: GLUCOMETER DEV NAME(LOC) POC.BV
[2022-07-09] MEDS ORDERED: PALIPERIDONE PALMITATE 156 MG/ML SYRINGE IM ONE (09:00)
[2022-07-09 09:14] VITALS: BP 123/71
[2022-07-09] MEDS: LevETIRAcetam 250 MG TABLET PO SCH ×2 (09:17→17:03)
[2022-07-09] MEDS: ClonazePAM 1 MG TABLET PO SCH (09:18)
[2022-07-09] MEDS: BuPROPion HCL XL 150 MG ER TABLET PO SCH (09:18)
[2022-07-09] MEDS: ATORVASTATIN CALCIUM 40 MG TABLET PO SCH (09:18)
[2022-07-09] MEDS: AmLODIPine BESYLATE 5 MG TABLET PO SCH (09:18)
[2022-07-09] MEDS: CHOLECALCIFEROL (VIT D3) 1,000 UNITS [25 MCG] TABLET PO SCH (09:20)
[2022-07-09] MEDS: RisperiDONE CONC 3 MG/3 ML SOLUTION ORAL.SYG PO SCH ×2 (09:20→20:22)
[2022-07-09 20:17] VITALS: BP 102/61
[2022-07-09] MEDS: OXYBUTYNIN CHLORIDE 5 MG TABLET PO SCH (20:23)
[2022-07-10 09:08] VITALS: BP 142/80
[2022-07-10] MEDS: BuPROPion HCL XL 150 MG ER TABLET PO SCH (09:08)
[2022-07-10] MEDS: ClonazePAM 1 MG TABLET PO SCH (09:08)
[2022-07-10] MEDS: ATORVASTATIN CALCIUM 40 MG TABLET PO SCH (09:09)
[2022-07-10] MEDS: AmLODIPine BESYLATE 5 MG TABLET PO SCH (09:09)
[2022-07-10] MEDS: RisperiDONE CONC 3 MG/3 ML SOLUTION ORAL.SYG PO SCH ×2 (09:09→21:23)
[2022-07-10] MEDS: LevETIRAcetam 250 MG TABLET PO SCH ×2 (09:09→17:26)
[2022-07-10] MEDS: CHOLECALCIFEROL (VIT D3) 1,000 UNITS [25 MCG] TABLET PO SCH (09:09)
[2022-07-10] MEDS: OXYBUTYNIN CHLORIDE 5 MG TABLET PO SCH (21:22)
[2022-07-10 21:27] VITALS: BP 126/73
[2022-07-11] MEDS: LevETIRAcetam 250 MG TABLET PO SCH ×2 (09:49→17:15)
[2022-07-11] MEDS: CHOLECALCIFEROL (VIT D3) 1,000 UNITS [25 MCG] TABLET PO SCH (09:50)
[2022-07-11] MEDS: AmLODIPine BESYLATE 5 MG TABLET PO SCH (09:50)
[2022-07-11] MEDS: ATORVASTATIN CALCIUM 40 MG TABLET PO SCH (09:50)
[2022-07-11] MEDS: ClonazePAM 1 MG TABLET PO SCH (09:50)
[2022-07-11] MEDS: BuPROPion HCL XL 150 MG ER TABLET PO SCH (09:51)
[2022-07-11] MEDS: RisperiDONE CONC 3 MG/3 ML SOLUTION ORAL.SYG PO SCH ×2 (09:52→20:27)
[2022-07-11 10:36] VITALS: BP 128/76
[2022-07-11 20:25] VITALS: BP 121/80
[2022-07-11] MEDS: OXYBUTYNIN CHLORIDE 5 MG TABLET PO SCH (20:27)
[2022-07-12] MEDS: LevETIRAcetam 250 MG TABLET PO SCH ×2 (08:07→16:20)
[2022-07-12] MEDS: ClonazePAM 1 MG TABLET PO SCH (08:07)
[2022-07-12] MEDS: ATORVASTATIN CALCIUM 40 MG TABLET PO SCH (08:07)
[2022-07-12] MEDS: AmLODIPine BESYLATE 5 MG TABLET PO SCH (08:07)
[2022-07-12] MEDS: BuPROPion HCL XL 150 MG ER TABLET PO SCH (08:07)
[2022-07-12] MEDS: CHOLECALCIFEROL (VIT D3) 1,000 UNITS [25 MCG] TABLET PO SCH (08:07)
[2022-07-12] MEDS: RisperiDONE CONC 3 MG/3 ML SOLUTION ORAL.SYG PO SCH ×2 (08:36→20:59)
[2022-07-12 08:55] VITALS: BP 136/66
[2022-07-12 20:51] VITALS: BP 124/68
[2022-07-12] MEDS: OXYBUTYNIN CHLORIDE 5 MG TABLET PO SCH (20:59)
[2022-07-13] MEDS: AmLODIPine BESYLATE 5 MG TABLET PO SCH (08:27)
[2022-07-13] MEDS: ClonazePAM 1 MG TABLET PO SCH (08:27)
[2022-07-13] MEDS: BuPROPion HCL XL 150 MG ER TABLET PO SCH (08:27)
[2022-07-13] MEDS: CHOLECALCIFEROL (VIT D3) 1,000 UNITS [25 MCG] TABLET PO SCH (08:28)
[2022-07-13] MEDS: ATORVASTATIN CALCIUM 40 MG TABLET PO SCH (08:28)
[2022-07-13] MEDS: LevETIRAcetam 250 MG TABLET PO SCH ×2 (08:28→16:15)
[2022-07-13] MEDS: RisperiDONE CONC 3 MG/3 ML SOLUTION ORAL.SYG PO SCH ×2 (08:28→20:27)
[2022-07-13 08:52] VITALS: BP 125/78
[2022-07-13 20:22] VITALS: BP 122/62
[2022-07-13] MEDS: OXYBUTYNIN CHLORIDE 5 MG TABLET PO SCH (20:27)
[2022-07-14] MEDS: BuPROPion HCL XL 150 MG ER TABLET PO SCH (08:31)
[2022-07-14] MEDS: ClonazePAM 1 MG TABLET PO SCH (08:31)
[2022-07-14] MEDS: AmLODIPine BESYLATE 5 MG TABLET PO SCH (08:31)
[2022-07-14] MEDS: CHOLECALCIFEROL (VIT D3) 1,000 UNITS [25 MCG] TABLET PO SCH (08:31)
[2022-07-14] MEDS: RisperiDONE CONC 3 MG/3 ML SOLUTION ORAL.SYG PO SCH ×2 (08:32→20:27)
[2022-07-14] MEDS: ATORVASTATIN CALCIUM 40 MG TABLET PO SCH (08:32)
[2022-07-14] MEDS: LevETIRAcetam 250 MG TABLET PO SCH ×2 (08:32→16:46)
[2022-07-14 08:53] VITALS: BP 117/66
[2022-07-14] MEDS: OXYBUTYNIN CHLORIDE 5 MG TABLET PO SCH (20:27)
[2022-07-14 20:49] VITALS: BP 120/71
[2022-07-15] MEDS: ClonazePAM 1 MG TABLET PO SCH (08:45)
[2022-07-15] MEDS: ATORVASTATIN CALCIUM 40 MG TABLET PO SCH (08:45)
[2022-07-15] MEDS: AmLODIPine BESYLATE 5 MG TABLET PO SCH (08:45)
[2022-07-15] MEDS: LevETIRAcetam 250 MG TABLET PO SCH ×2 (08:45→16:11)
[2022-07-15] MEDS: BuPROPion HCL XL 150 MG ER TABLET PO SCH (08:45)
[2022-07-15] MEDS: CHOLECALCIFEROL (VIT D3) 1,000 UNITS [25 MCG] TABLET PO SCH (08:46)
[2022-07-15] MEDS: RisperiDONE CONC 3 MG/3 ML SOLUTION ORAL.SYG PO SCH ×2 (08:46→21:04)
[2022-07-15 08:54] VITALS: BP 126/70
[2022-07-15 20:44] VITALS: BP 120/66
[2022-07-15] MEDS: OXYBUTYNIN CHLORIDE 5 MG TABLET PO SCH (21:05)
[2022-07-16 07:21] LABS: GLUCOMETER DEV NAME(LOC) POC.BV
[2022-07-16] MEDS: AmLODIPine BESYLATE 5 MG TABLET PO SCH (08:29)
[2022-07-16] MEDS: BuPROPion HCL XL 150 MG ER TABLET PO SCH (08:29)
[2022-07-16] MEDS: ATORVASTATIN CALCIUM 40 MG TABLET PO SCH (08:29)
[2022-07-16] MEDS: LevETIRAcetam 250 MG TABLET PO SCH ×2 (08:29→17:00)
[2022-07-16] MEDS: ClonazePAM 1 MG TABLET PO SCH (08:29)
[2022-07-16] MEDS: RisperiDONE CONC 3 MG/3 ML SOLUTION ORAL.SYG PO SCH ×2 (08:30→20:23)
[2022-07-16] MEDS: CHOLECALCIFEROL (VIT D3) 1,000 UNITS [25 MCG] TABLET PO SCH (08:30)
[2022-07-16 08:32] VITALS: BP 135/67
[2022-07-16 20:00] VITALS: BP 115/65
[2022-07-16] MEDS: OXYBUTYNIN CHLORIDE 5 MG TABLET PO SCH (20:24)
[2022-07-17 08:39] VITALS: BP 119/63
[2022-07-17] MEDS: RisperiDONE CONC 3 MG/3 ML SOLUTION ORAL.SYG PO SCH ×2 (09:01→20:40)
[2022-07-17] MEDS: CHOLECALCIFEROL (VIT D3) 1,000 UNITS [25 MCG] TABLET PO SCH (09:02)
[2022-07-17] MEDS: ClonazePAM 1 MG TABLET PO SCH (09:02)
[2022-07-17] MEDS: ATORVASTATIN CALCIUM 40 MG TABLET PO SCH (09:02)
[2022-07-17] MEDS: AmLODIPine BESYLATE 5 MG TABLET PO SCH (09:02)
[2022-07-17] MEDS: BuPROPion HCL XL 150 MG ER TABLET PO SCH (09:02)
[2022-07-17] MEDS: LevETIRAcetam 250 MG TABLET PO SCH ×2 (09:02→16:37)
[2022-07-17 16:16] VITALS: BP 98/58
[2022-07-17 20:00] VITALS: BP 103/55
[2022-07-17] MEDS: OXYBUTYNIN CHLORIDE 5 MG TABLET PO SCH (20:41)
[2022-07-18 08:27] VITALS: BP 130/70
[2022-07-18] MEDS: AmLODIPine BESYLATE 5 MG TABLET PO SCH (08:40)
[2022-07-18] MEDS: ClonazePAM 1 MG TABLET PO SCH (08:40)
[2022-07-18] MEDS: RisperiDONE CONC 3 MG/3 ML SOLUTION ORAL.SYG PO SCH ×2 (08:40→20:30)
[2022-07-18] MEDS: BuPROPion HCL XL 150 MG ER TABLET PO SCH (08:40)
[2022-07-18] MEDS: ATORVASTATIN CALCIUM 40 MG TABLET PO SCH (08:40)
[2022-07-18] MEDS: CHOLECALCIFEROL (VIT D3) 1,000 UNITS [25 MCG] TABLET PO SCH (08:40)
[2022-07-18] MEDS: LevETIRAcetam 250 MG TABLET PO SCH ×2 (08:40→16:42)
[2022-07-18] MEDS: OXYBUTYNIN CHLORIDE 5 MG TABLET PO SCH (20:30)
[2022-07-18 20:43] VITALS: BP 148/75
[2022-07-19 08:30] VITALS: BP 116/59
[2022-07-19] MEDS: LevETIRAcetam 250 MG TABLET PO SCH ×2 (08:58→16:51)
[2022-07-19] MEDS: BuPROPion HCL XL 150 MG ER TABLET PO SCH (08:58)
[2022-07-19] MEDS: ClonazePAM 1 MG TABLET PO SCH (08:58)
[2022-07-19] MEDS: RisperiDONE CONC 3 MG/3 ML SOLUTION ORAL.SYG PO SCH ×2 (08:59→21:54)
[2022-07-19] MEDS: AmLODIPine BESYLATE 5 MG TABLET PO SCH (08:59)
[2022-07-19] MEDS: ATORVASTATIN CALCIUM 40 MG TABLET PO SCH (08:59)
[2022-07-19] MEDS: CHOLECALCIFEROL (VIT D3) 1,000 UNITS [25 MCG] TABLET PO SCH (09:01)
[2022-07-19 20:43] VITALS: BP 133/68
[2022-07-19] MEDS: ZOLPIDEM TARTRATE 10 MG TABLET PO PRN (21:52)
[2022-07-19] MEDS: OXYBUTYNIN CHLORIDE 5 MG TABLET PO SCH (21:53)
[2022-07-20] MEDS: LevETIRAcetam 250 MG TABLET PO SCH ×2 (08:59→16:40)
[2022-07-20] MEDS: CHOLECALCIFEROL (VIT D3) 1,000 UNITS [25 MCG] TABLET PO SCH (08:59)
[2022-07-20] MEDS: ClonazePAM 1 MG TABLET PO SCH (08:59)
[2022-07-20] MEDS: BuPROPion HCL XL 150 MG ER TABLET PO SCH (08:59)
[2022-07-20] MEDS: ATORVASTATIN CALCIUM 40 MG TABLET PO SCH (08:59)
[2022-07-20] MEDS: AmLODIPine BESYLATE 5 MG TABLET PO SCH (08:59)
[2022-07-20] MEDS: RisperiDONE CONC 3 MG/3 ML SOLUTION ORAL.SYG PO SCH ×2 (09:01→20:32)
[2022-07-20 09:34] VITALS: BP 125/70
[2022-07-20] MEDS: OXYBUTYNIN CHLORIDE 5 MG TABLET PO SCH (20:31)
[2022-07-20 20:51] VITALS: BP 121/67
[2022-07-21] MEDS: AmLODIPine BESYLATE 5 MG TABLET PO SCH (08:46)
[2022-07-21] MEDS: LevETIRAcetam 250 MG TABLET PO SCH ×2 (08:47→16:29)
[2022-07-21] MEDS: ClonazePAM 1 MG TABLET PO SCH (08:47)
[2022-07-21] MEDS: RisperiDONE CONC 3 MG/3 ML SOLUTION ORAL.SYG PO SCH ×2 (08:47→20:41)
[2022-07-21] MEDS: CHOLECALCIFEROL (VIT D3) 1,000 UNITS [25 MCG] TABLET PO SCH (08:47)
[2022-07-21] MEDS: ATORVASTATIN CALCIUM 40 MG TABLET PO SCH (08:47)
[2022-07-21] MEDS: BuPROPion HCL XL 150 MG ER TABLET PO SCH (08:47)
[2022-07-21 09:26] VITALS: BP 128/73
[2022-07-21] MEDS: OXYBUTYNIN CHLORIDE 5 MG TABLET PO SCH (20:41)
[2022-07-21 20:51] VITALS: BP 129/84
[2022-07-22 09:13] VITALS: BP 118/77
[2022-07-22] MEDS: BuPROPion HCL XL 150 MG ER TABLET PO SCH (09:33)
[2022-07-22] MEDS: LevETIRAcetam 250 MG TABLET PO SCH ×2 (09:33→17:30)
[2022-07-22] MEDS: AmLODIPine BESYLATE 5 MG TABLET PO SCH (09:33)
[2022-07-22] MEDS: ClonazePAM 1 MG TABLET PO SCH (09:33)
[2022-07-22] MEDS: ATORVASTATIN CALCIUM 40 MG TABLET PO SCH (09:33)
[2022-07-22] MEDS: CHOLECALCIFEROL (VIT D3) 1,000 UNITS [25 MCG] TABLET PO SCH (09:33)
[2022-07-22] MEDS: RisperiDONE CONC 3 MG/3 ML SOLUTION ORAL.SYG PO SCH ×2 (09:34→20:13)
[2022-07-22 20:00] VITALS: BP 133/61
[2022-07-22] MEDS: OXYBUTYNIN CHLORIDE 5 MG TABLET PO SCH (20:14)
[2022-07-23] MEDS: LevETIRAcetam 250 MG TABLET PO SCH ×2 (08:39→16:36)
[2022-07-23] MEDS: ClonazePAM 1 MG TABLET PO SCH (08:39)
[2022-07-23] MEDS: AmLODIPine BESYLATE 5 MG TABLET PO SCH (08:39)
[2022-07-23] MEDS: RisperiDONE CONC 3 MG/3 ML SOLUTION ORAL.SYG PO SCH ×2 (08:40→20:28)
[2022-07-23] MEDS: ATORVASTATIN CALCIUM 40 MG TABLET PO SCH (08:40)
[2022-07-23] MEDS: BuPROPion HCL XL 150 MG ER TABLET PO SCH (08:40)
[2022-07-23] MEDS: CHOLECALCIFEROL (VIT D3) 1,000 UNITS [25 MCG] TABLET PO SCH (08:40)
[2022-07-23 09:20] VITALS: BP 141/74
[2022-07-23 11:06] LABS: GLUCOMETER DEV NAME(LOC) POC.BV
[2022-07-23 20:05] VITALS: BP 109/60
[2022-07-23] MEDS: OXYBUTYNIN CHLORIDE 5 MG TABLET PO SCH (20:28)
[2022-07-24 08:29] VITALS: BP 135/64
[2022-07-24] MEDS: AmLODIPine BESYLATE 5 MG TABLET PO SCH (09:05)
[2022-07-24] MEDS: RisperiDONE CONC 3 MG/3 ML SOLUTION ORAL.SYG PO SCH ×2 (09:05→20:33)
[2022-07-24] MEDS: ClonazePAM 1 MG TABLET PO SCH (09:05)
[2022-07-24] MEDS: ATORVASTATIN CALCIUM 40 MG TABLET PO SCH (09:05)
[2022-07-24] MEDS: LevETIRAcetam 250 MG TABLET PO SCH ×2 (09:05→16:35)
[2022-07-24] MEDS: BuPROPion HCL XL 150 MG ER TABLET PO SCH (09:06)
[2022-07-24] MEDS: CHOLECALCIFEROL (VIT D3) 1,000 UNITS [25 MCG] TABLET PO SCH (09:06)
[2022-07-24] MEDS: OXYBUTYNIN CHLORIDE 5 MG TABLET PO SCH (20:33)
[2022-07-24 21:24] VITALS: BP 115/63
[2022-07-25] MEDS: AmLODIPine BESYLATE 5 MG TABLET PO SCH (08:40)
[2022-07-25] MEDS: CHOLECALCIFEROL (VIT D3) 1,000 UNITS [25 MCG] TABLET PO SCH (08:40)
[2022-07-25] MEDS: RisperiDONE CONC 3 MG/3 ML SOLUTION ORAL.SYG PO SCH ×2 (08:40→20:35)
[2022-07-25] MEDS: ClonazePAM 1 MG TABLET PO SCH (08:41)
[2022-07-25] MEDS: ATORVASTATIN CALCIUM 40 MG TABLET PO SCH (08:41)
[2022-07-25] MEDS: LevETIRAcetam 250 MG TABLET PO SCH ×2 (08:41→16:36)
[2022-07-25] MEDS: BuPROPion HCL XL 150 MG ER TABLET PO SCH (08:41)
[2022-07-25 11:32] VITALS: BP 130/80
[2022-07-25] MEDS: OXYBUTYNIN CHLORIDE 5 MG TABLET PO SCH (20:35)
[2022-07-25 22:14] VITALS: BP 146/81
[2022-07-26] MEDS: ATORVASTATIN CALCIUM 40 MG TABLET PO SCH (08:40)
[2022-07-26] MEDS: AmLODIPine BESYLATE 5 MG TABLET PO SCH (08:40)
[2022-07-26] MEDS: ClonazePAM 1 MG TABLET PO SCH (08:40)
[2022-07-26] MEDS: BuPROPion HCL XL 150 MG ER TABLET PO SCH (08:40)
[2022-07-26] MEDS: LevETIRAcetam 250 MG TABLET PO SCH ×2 (08:41→16:09)
[2022-07-26] MEDS: CHOLECALCIFEROL (VIT D3) 1,000 UNITS [25 MCG] TABLET PO SCH (08:41)
[2022-07-26] MEDS: RisperiDONE CONC 3 MG/3 ML SOLUTION ORAL.SYG PO SCH ×2 (08:42→20:06)
[2022-07-26 09:15] VITALS: BP 138/91
[2022-07-26] MEDS: OXYBUTYNIN CHLORIDE 5 MG TABLET PO SCH (20:06)
[2022-07-26 21:05] VITALS: BP 127/70
[2022-07-27] MEDS: LevETIRAcetam 250 MG TABLET PO SCH ×2 (09:21→16:44)
[2022-07-27] MEDS: BuPROPion HCL XL 150 MG ER TABLET PO SCH (09:21)
[2022-07-27] MEDS: AmLODIPine BESYLATE 5 MG TABLET PO SCH (09:22)
[2022-07-27] MEDS: ClonazePAM 1 MG TABLET PO SCH (09:22)
[2022-07-27] MEDS: RisperiDONE CONC 3 MG/3 ML SOLUTION ORAL.SYG PO SCH ×2 (09:22→20:34)
[2022-07-27] MEDS: ATORVASTATIN CALCIUM 40 MG TABLET PO SCH (09:22)
[2022-07-27] MEDS: CHOLECALCIFEROL (VIT D3) 1,000 UNITS [25 MCG] TABLET PO SCH (09:22)
[2022-07-27 09:53] VITALS: BP 138/77
[2022-07-27] MEDS: OXYBUTYNIN CHLORIDE 5 MG TABLET PO SCH (20:34)
[2022-07-27 20:52] VITALS: BP 124/63
[2022-07-28] MEDS: AmLODIPine BESYLATE 5 MG TABLET PO SCH (09:20)
[2022-07-28] MEDS: CHOLECALCIFEROL (VIT D3) 1,000 UNITS [25 MCG] TABLET PO SCH (09:20)
[2022-07-28] MEDS: LevETIRAcetam 250 MG TABLET PO SCH ×2 (09:20→16:02)
[2022-07-28] MEDS: ClonazePAM 1 MG TABLET PO SCH (09:20)
[2022-07-28] MEDS: ATORVASTATIN CALCIUM 40 MG TABLET PO SCH (09:20)
[2022-07-28] MEDS: BuPROPion HCL XL 150 MG ER TABLET PO SCH (09:20)
[2022-07-28] MEDS: RisperiDONE CONC 3 MG/3 ML SOLUTION ORAL.SYG PO SCH ×2 (09:21→20:01)
[2022-07-28 09:49] VITALS: BP 132/60
[2022-07-28 09:51] VITALS: BP 101/68
[2022-07-28 09:55] VITALS: BP 132/60
[2022-07-28] MEDS: OXYBUTYNIN CHLORIDE 5 MG TABLET PO SCH (20:01)
[2022-07-28 20:44] VITALS: BP 123/84
[2022-07-29] MEDS: CHOLECALCIFEROL (VIT D3) 1,000 UNITS [25 MCG] TABLET PO SCH (08:42)
[2022-07-29] MEDS: ClonazePAM 1 MG TABLET PO SCH (08:42)
[2022-07-29] MEDS: BuPROPion HCL XL 150 MG ER TABLET PO SCH (08:42)
[2022-07-29] MEDS: ATORVASTATIN CALCIUM 40 MG TABLET PO SCH (08:43)
[2022-07-29] MEDS: AmLODIPine BESYLATE 5 MG TABLET PO SCH (08:43)
[2022-07-29] MEDS: LevETIRAcetam 250 MG TABLET PO SCH ×2 (08:43→16:57)
[2022-07-29] MEDS: RisperiDONE CONC 3 MG/3 ML SOLUTION ORAL.SYG PO SCH (08:44)
[2022-07-29 09:15] VITALS: BP 129/70
[2022-07-29 20:55] VITALS: BP 121/77
[2022-07-29] MEDS: OXYBUTYNIN CHLORIDE 5 MG TABLET PO SCH (21:00)
[2022-07-30 08:37] VITALS: BP 132/65
[2022-07-30] MEDS: CHOLECALCIFEROL (VIT D3) 1,000 UNITS [25 MCG] TABLET PO SCH (09:14)
[2022-07-30] MEDS: ATORVASTATIN CALCIUM 40 MG TABLET PO SCH (09:14)
[2022-07-30] MEDS: ClonazePAM 1 MG TABLET PO SCH (09:14)
[2022-07-30] MEDS: LevETIRAcetam 250 MG TABLET PO SCH ×2 (09:14→16:40)
[2022-07-30] MEDS: BuPROPion HCL XL 150 MG ER TABLET PO SCH (09:15)
[2022-07-30] MEDS: AmLODIPine BESYLATE 5 MG TABLET PO SCH (09:22)
[2022-07-30 16:30] LABS: GLUCOMETER DEV NAME(LOC) POC.BV
[2022-07-30 20:29] VITALS: BP 124/77
[2022-07-30] MEDS: OXYBUTYNIN CHLORIDE 5 MG TABLET PO SCH (20:32)
[2022-07-31] MEDS: CHOLECALCIFEROL (VIT D3) 1,000 UNITS [25 MCG] TABLET PO SCH (08:47)
[2022-07-31] MEDS: LevETIRAcetam 250 MG TABLET PO SCH ×2 (08:47→16:13)
[2022-07-31] MEDS: ClonazePAM 1 MG TABLET PO SCH (08:47)
[2022-07-31] MEDS: AmLODIPine BESYLATE 5 MG TABLET PO SCH (08:47)
[2022-07-31] MEDS: ATORVASTATIN CALCIUM 40 MG TABLET PO SCH (08:47)
[2022-07-31] MEDS: BuPROPion HCL XL 150 MG ER TABLET PO SCH (08:48)
[2022-07-31 09:01] VITALS: BP 131/77
[2022-07-31] MEDS: OXYBUTYNIN CHLORIDE 5 MG TABLET PO SCH (20:02)
[2022-07-31 21:13] VITALS: BP 128/72
[2022-08-01 08:45] VITALS: BP 125/62
[2022-08-01] MEDS: ClonazePAM 1 MG TABLET PO SCH (09:02)
[2022-08-01] MEDS: ATORVASTATIN CALCIUM 40 MG TABLET PO SCH (09:02)
[2022-08-01] MEDS: LevETIRAcetam 250 MG TABLET PO SCH ×2 (09:02→16:32)
[2022-08-01] MEDS: BuPROPion HCL XL 150 MG ER TABLET PO SCH (09:02)
[2022-08-01] MEDS: AmLODIPine BESYLATE 5 MG TABLET PO SCH (09:02)
[2022-08-01] MEDS: CHOLECALCIFEROL (VIT D3) 1,000 UNITS [25 MCG] TABLET PO SCH (09:02)
[2022-08-01] MEDS: OXYBUTYNIN CHLORIDE 5 MG TABLET PO SCH (20:34)
[2022-08-01 21:41] VITALS: BP 120/71
[2022-08-02 08:39] VITALS: BP 120/76
[2022-08-02] MEDS ORDERED: CHOL25TA4 PO (09:08)
[2022-08-02] MEDS ORDERED: AMLO-257 PO (09:08)
[2022-08-02] MEDS ORDERED: LEVE250T PO (09:08)
[2022-08-02] MEDS ORDERED: ATOR40TA71 PO (09:08)
[2022-08-02] MEDS ORDERED: OXYB5TAB20 PO (09:08)
[2022-08-02] MEDS ORDERED: CLON-595 PO (09:08)
[2022-08-02] MEDS ORDERED: PALI234D IM (09:08)
[2022-08-02] MEDS ORDERED: BUPR-49 PO (09:08)
[2022-08-02] MEDS ORDERED: CLON-598 PO (09:08)
[2022-08-02] MEDS: LevETIRAcetam 250 MG TABLET PO SCH ×2 (09:25→16:36)
[2022-08-02] MEDS: ATORVASTATIN CALCIUM 40 MG TABLET PO SCH (09:25)
[2022-08-02] MEDS: AmLODIPine BESYLATE 5 MG TABLET PO SCH (09:25)
[2022-08-02] MEDS: ClonazePAM 1 MG TABLET PO SCH (09:25)
[2022-08-02] MEDS: BuPROPion HCL XL 150 MG ER TABLET PO SCH (09:26)
[2022-08-02] MEDS: CHOLECALCIFEROL (VIT D3) 1,000 UNITS [25 MCG] TABLET PO SCH (09:26)
[2022-08-06] MEDS ORDERED: PALIPERIDONE PALMITATE 234 MG/1.5 ML SYRINGE IM SCH (09:00)
== END 2022-08-02 17:55 | disposition home or self-care (01) | DRG 750 ==
LOC: EMS 17:21 → B2S 06-26 00:01
PROVIDERS: ADMIT Psychiatry & Neurology Psychiatry; ATTEND Psychiatry & Neurology Psychiatry
DX: F20.0 Paranoid schizophrenia (principal); R56.9 Unspecified convulsions; E55.9 Vitamin D deficiency, unspecified; Z20.822 Contact with and (suspected) exposure to COVID-19; F32.A Depression, unspecified; F17.210 Nicotine dependence, cigarettes, uncomplicated; I10 Essential (primary) hypertension; Z59.00 Homelessness unspecified; Z79.899 Other long term (current) drug therapy
CPT/HCPCS: 80053; 80307; 81003; 85025; 87081; 99285; G0480